=== PATIENT | female | born 2000 | race African-American/Black ===

== ENCOUNTER 2024-10-22 15:12 | Emergency (ER) | payer SELFPAY ==
[2024-10-22 15:38] VITALS: BP 130/89; PULSE 84; RESP 18; TEMP 36.4; O2SAT 100
--- NOTE | 2024-10-22 16:49 | ED_ITS ---
HPI - General Adult General Chief complaint: Upper Respiratory Infection Stated complaint: Sinus infection Time Seen by Provider: 10/22/24 16:49 Source: patient Mode of arrival: ambulatory Limitations: no limitations History of Present Illness HPI narrative: 24-year-old female patient presents to [facility] with complaints of sinus pressure and cold-like symptoms for the past 5 days. Patient states she went a nd saw the [facility] on Thursday and he she was told it was just called to take some Zyrtec and Flonase. Patient states she has been taking that but states that the pressure and congestion to the nasal area as gotten worse. Denies any fevers body aches or chills. Related Data Allergies Allergy/AdvReac Type Severity Reaction Status Date / Time No Known Allergies Allergy Verified 10/22/24 16:07 Review of Systems Review of Systems: CONSTITUTIONAL: Denies fever, chills, or sweats. EYES: Denies visual changes, redness, or discharge. ENT: Denies rhinorrhea, positive congestion, denies sore throat, or otalgia. CARDIOVASCULAR: Denies chest pain, palpitations, or edema. RESPIRATORY: Denies cough or dyspnea. GASTROINTESTINAL: Denies abdominal pain, nausea, vomiting, or diarrhea. GENITOURINARY: Denies dysuria or hematuria. SKIN: Denies rash or itching. MUSCULOSKELETAL: Denies back pain, joint pain, or myalgia. NEUROLOGIC: Positive headache, denies numbness, or weakness. PSYCHIATRIC: Denies anxiety or depression. [facility] Past Medical History Medical History (Updated 10/22/24 @ 16:59 by TOYNA Feldman) No significant past medical history Comments At the time of my signature I agree with nursing past medical history, surgical, social, and family history. There is no relevant family history pertinent to the presenting complaint. Exam Narrative: GENERAL: Well-appearing, well-nourished, and in no acute distress. HEAD: Normocephalic, atraumatic. EYES: PERRLA and EOMI. ENT: Nares With erythema edema noted bilaterally but patent, no rhinorrhea or epistaxis. Mucous membranes moist. posterior pharynx with no erythema, tonsillar enlargement, exudates or lesions present. Bilateral TMs have a little bit of fluid behind there but no erythema no foreign bodies noted to the canal. NECK: Supple. No lymphadenopathy CHEST: Clear to auscultation. No respiratory distress. HEART: Regular rate and rhythm. No murmur heard. Normal peripheral pulses. ABDOMEN: Soft, nontender, nondistended, normal active bowel sounds. EXTREMITIES: Normal range of motion. No edema. SKIN: Warm, dry, no rash. NEURO: No focal deficits. Alert and oriented x3. Course Course Level of Care: Express Care Visit Vital Signs Vital signs: Vital Signs Temperature 36.4 C 10/22/24 15:38 Pulse Rate 84 10/22/24 15:38 Respiratory Rate 18 10/22/24 15:38 Blood Pressure 130/89 10/22/24 15:38 Pulse Oximetry 100 10/22/24 15:38 Temperature 36.4 C 10/22/24 15:38 Pulse Rate 84 10/22/24 15:38 Respiratory Rate 18 10/22/24 15:38 Blood Pressure 130/89 10/22/24 15:38 Pulse Oximetry 100 10/22/24 15:38 Vital signs reviewed. The patient has been informed that they may have pre-hypertension or Hypertension based on a BP reading in the department. I recommend that the patient call the primary care provider listed on their discharge instructions or a physician of their choice this week to arrange follow up for further evaluation of possible pre-hypertension or Hypertension Medical Decision Making MDM Narrative Medical decision making narrative: plan of care patient is discharged home with methylprednisone to help with the sinus congestion and pain. Discussed with patient to continue taking her Zyrtec and Flonase. Patient verbalized understanding denies any other questions or concerns at this time. Differential Diagnosis Differential Diagnosis: Differential diagnosis: Allergic rhinitis, chronic sinusitis, tonsillitis, acute sinusitis, infectious mononucleosis, seasonal influenza, pertussis, diphtheria, meningococcal disease, viral syndrome, viral bronchitis, RSV, COVID- 19 Vital Signs Vital Signs: Vital Signs Temperature 36.4 C 10/22/24 15:38 Pulse Rate 84 10/22/24 15:38 Respiratory Rate 18 10/22/24 15:38 Blood Pressure 130/89 10/22/24 15:38 Pulse Oximetry 100 10/22/24 15:38 Temperature 36.4 C 10/22/24 15:38 Pulse Rate 84 10/22/24 15:38 Respiratory Rate 18 10/22/24 15:38 Blood Pressure 130/89 10/22/24 15:38 Pulse Oximetry 100 10/22/24 15:38 Critical Care Time Critical Care Time Critical Care Time: No Discharge Plan Discharge Clinical Impression: Viral sinusitis Patient Disposition: Home Condition: Stable Instructions: Antibiotic Form, Sinusitis (ED) Additional Instructions: Viral illness may last between 7-12days; antibiotic is NOT recommended at this time. Recommend antihistamine such as Benadryl at night time and Claritin/Zyrtec/Ruby during the day Cough syrup may cause drowsiness; avoid driving or take it at night time. Also, recommend symptomatic treatment includes: rest, fluids, and increase humidity of the air at home. Recommend Acetaminophen or nonsteroidal anti-inflammatory agents (NSAIDs) as directed in the bottle to reduce fever and/pain/headache. Avoid smoking/second-hand smoke. Limit visits to areas with large crowds. Please schedule a follow-up visit with your personal physician for further evaluation and treatment within 3-5days. Including recheck and discussion of your blood pressure. If your symptoms persist, change or worsen significantly before you can contact your personal physician then please, without delay, go to the emergency department for further evaluation. Patient Language: Samoan Prescriptions: New methylprednisolone 4 mg tablets,dose pack See Rx Instructions PO .COMPLEX Qty: 21 0RF Rx Instructions: for 6 days Follow-up/Referrals: PHYSICIAN,GALLERY DIRECTOR [Primary Care Provider] - Time of Disposition: 16:56
== END 2024-10-22 16:57 | disposition home or self-care (01) ==
PROVIDERS: Emergency Provider Nurse Practitioner Family
DX: J32.9 Chronic sinusitis, unspecified (principal); B97.89 Other viral agents as the cause of diseases classified elsewhere
CPT/HCPCS: 99203; G0463